=== PATIENT | male | born 1950 | race African-American/Black ===

== ENCOUNTER 2017-12-21 21:54 | Observation (INO) | payer OTHER ==
--- NOTE | 2017-12-21 21:58 | PDOC ---
Rapid Medical Evaluation Time Seen by Provider: 12/21/17 21:55 Medical Evaluation: 12/21/17 21:56 I have performed a brief in-person evaluation of this patient. The patient presents with a chief complaint of: syncope, LOC, hit back of head, hx of PEs - SOB + weakness X 1 month Pertinent physical exam findings: bp 91/50, no focal deficits but weak/drowsy appearing I have ordered the following: ekg, labs, head/cspine ct The patient will proceed to the ED for further evaluation. Discharge Disposition - Diagnosis Syncope - Referrals - Patient Instructions - Post Discharge Activity
[2017-12-21 22:05] VITALS: BMI 23.3
[2017-12-21] MEDS ORDERED: SODIUM CHLORIDE 500 ML IV STA (23:12)
[2017-12-21 23:15] LABS: EOS % 2.8 % (0-4.5); HEMATOCRIT 39.3 % (35.4-49); LYMPH % 38.7 % (8-40); MCHC 33.1 g/dl (32.0-35.9); MEAN CELL VOLUME 87.7 fl (80-96); MEAN PLT VOLUME 7.7 fl (7.5-11.1); MONO % 8.7 % (3.8-10.2); NEUT % 48.8 % (42.8-82.8); PLATELET COUNT 271 K/MM3 (134-434); RBC 4.49 M/mm3 (4.00-5.60); RDW 15.2 % (11.9-15.9); WHITE BLOOD COUNT 5.9 K/mm3 (4.0-10.0)
[2017-12-21 23:30] LABS: INR 0.96 (0.82-1.09); PROTHROMBIN TIME (PATIENT) 10.9 SEC (9.98-11.88)
--- NOTE | 2017-12-21 23:47 | PDOC ---
History of Present Illness - General Chief Complaint: Syncope/Near Syncope Stated Complaint: Syncope/Near Syncope Time Seen by Provider: 12/21/17 21:55 History Source: Patient Exam Limitations: No Limitations - History of Present Illness Initial Comments: 12/21/17 23:44 The patient is a 67M with a PMH of HTN, DM, rheumatoid arthritis, and PE in 2014 who presents to the ER after having a syncopal episode at home. The patient states that he was feeling well and stopped taking all of his medications including anticoagulation 2 weeks ago. The patient states that he felt like he had the urge to defecate, walked to the bathroom, and syncopized. He was unwitnessed. He states that when he woke up, he was not disoriented. He was at his friends house and his friends heard him hit the floor which prompted them to look for him. He states that he does not have any acute complaints but felt abdominal pain before he syncopized. He denies any CP, SOB, fever, chills, nausea, vomiting. Past History - Past Medical History Allergies/Adverse Reactions: Allergies Allergy/AdvReac Type Severity Reaction Status Date / Time No Known Allergies Allergy Verified 12/21/17 22:01 COPD: No DVT: Yes (PEs) Other medical history: RA, chronic lower back pain - Suicide/Smoking/Psychosocial Hx Smoking History: Never smoked Have you smoked in the past 12 months: No Information on smoking cessation initiated: No Hx Alcohol Use: No Drug/Substance Use Hx: Yes (Marijuana) Substance Use Type: None Review of Systems - Review of Systems Able to Perform ROS?: Yes Comments:: 12/22/17 00:30 GENERAL/CONSTITUTIONAL: No fever or chills. No weakness. HEAD, EYES, EARS, NOSE AND THROAT: No change in vision. No ear pain or discharge. No sore throat. CARDIOVASCULAR: No chest pain, palpitations, or lightheadedness. RESPIRATORY: Positive for shortness of breath prior to syncope. No cough, wheezing, or hemoptysis. GASTROINTESTINAL: Positive for abdominal pain prior to syncope. No nausea, vomiting, diarrhea, or constipation. GENITOURINARY: No dysuria, frequency, hematuria, or change in urination. MUSCULOSKELETAL: No joint or muscle swelling or pain. No neck or back pain. SKIN: No rash or lesions. NEUROLOGIC: Positive for syncope. No headache, numbness, tingling, weakness, or change in strength/sensation. ENDOCRINE: No increased thirst. No abnormal weight change. HEMATOLOGIC/LYMPHATIC: No anemia, easy bleeding, or history of blood clots. ALLERGIC/IMMUNOLOGIC: No hives or skin allergy. Is the patient limited Portuguese proficient: No *Physical Exam - Vital Signs Last Vital Signs Temp Pulse Resp BP Pulse Ox 97.4 F L 64 18 91/57 98 12/21/17 22:02 12/21/17 22:02 12/21/17 22:02 12/21/17 22:02 12/21/17 22:02 - Physical Exam Comments: 12/22/17 00:31 GENERAL: Well developed, well nourished. Awake and alert. No acute distress. HEENT: Normocephalic, atraumatic. Hearing grossly normal. Moist mucous membranes. PERRLA, EOMI. No conjunctival pallor. Sclera are non-icteric. Oropharynx is clear. NECK: Supple. Full ROM. No JVD. CARDIOVASCULAR: Regular rate and rhythm. No murmurs, rubs, or gallops. PULMONARY: No evidence of respiratory distress. Lungs clear to auscultation bilaterally. No wheezing, rales or rhonchi. ABDOMINAL: Soft. Non-tender. Non-distended. No rebound or guarding. GENITOURINARY: No CVA tenderness bilaterally. MUSCULOSKELETAL: Normal range of motion at all joints. No bony deformities or tenderness. EXTREMITIES: No cyanosis. No clubbing. No edema. No calf tenderness. SKIN: Warm and dry. Normal capillary refill. No rashes. No jaundice. NEUROLOGICAL: Alert, awake, appropriate. Cranial nerves 2-12 intact. No deficits to light touch and temperature in face, upper extremities and lower extremities. No motor deficits in the in face, upper extremities and lower extremities. Normoreflexic in the upper and lower extremities. Normal speech. PSYCHIATRIC: Cooperative. Good eye contact. Appropriate mood and affect. Heart Score/ECG Review #1 ECG reviewed & interpreted by me at: 23:46 General ECG Interpretation: Sinus Rhythm, Normal Rate, Normal Intervals, No acute ischemic changes Compared to previous ECG there are: Previous ECG unavail 12/22/17 00:32 NSR Rate 60 IL 170 QRS 84 QTc 446 No acute ischemic changes noted. ED Treatment Course - LABORATORY CBC & Chemistry Diagram: 12/21/17 23:00 12/21/17 23:00 - ADDITIONAL ORDERS Additional order review: Laboratory Results 12/21/17 12/21/17 23:10 23:00 PT with INR 10.90 INR 0.96 D-Dimer 585 H 12/21/17 23:00 RBC 4.49 MCV 87.7 MCHC 33.1 RDW 15.2 MPV 7.7 Neutrophils % 48.8 Lymphocytes % 38.7 Monocytes % 8.7 Eosinophils % 2.8 Basophils % 1.0 - RADIOLOGY Radiology Studies Ordered: Category Date Time Status ABDOMEN CT WITHOUT CONTRAST [CT] Stat CT Scan 12/21/17 23:44 Ordered CHEST CTA [CT] Stat CT Scan 12/21/17 23:18 Ordered Medical Decision Making - Medical Decision Making 12/22/17 00:33 The patient is a 67M with a PMH of HTN, DM, RA, and PE in 2014 who stopped taking his medications and experienced a syncopal episode. Bedside u/s does not reveal a AAA although the exam is very limited. PE is the most likely diagnosis although ACS and AAA are also on the differential. The patient had a negative head and neck CT. Pending labs and imaging of his chest and abdomen (CTA chest and noncon abd). Pt signed out to Dr. Trujillo, night team. *DC/Admit/Observation/Transfer Diagnosis at time of Disposition: Syncope - Referrals - Patient Instructions - Post Discharge Activity
[2017-12-21 23:49] LABS: ALBUMIN 3.3 g/dl (3.4-5.0); ANION GAP 11 (8-16); BILIRUBIN,TOTAL 0.2 mg/dL (0.2-1.0); BLOOD UREA NITROGEN 16 mg/dL (7-18); CALCIUM 9.1 mg/dL (8.5-10.1); CHLORIDE 105 mmol/L (98-107); CO2 26 mmol/L (21-32); CREATININE 1.2 mg/dL (0.7-1.3); GLUCOSE,RANDOM 107 mg/dL (74-106); SGPT/ALT 28 U/L (12-78); SODIUM 142 mmol/L (136-145); TOT PROT 7.4 g/dl (6.4-8.2)
[2017-12-21 23:52] LABS: ALK PHOS 105 U/L (45-117)
[2017-12-21 23:53] LABS: SGOT/AST 17 U/L (15-37)
[2017-12-21 23:54] LABS: POTASSIUM 4.9 mmol/L (3.5-5.1)
--- NOTE | 2017-12-22 00:28 | PDOC ---
Attending Attestation - HPI HPI: 12/22/17 01:12 The patient is a 67M with a PMHx of HTN, DM, rheumatoid arthritis, and PE (2014 ) who presents to the ER s/p syncope. The patient states that he syncopized on his way to use the restroom while at a friend's house. His friend did not witness the fall but heard when he hit the ground and called EMS. Patient states that he hasn't been taking his medications for the past 2 weeks because he is feeling well. Patient notes some abdominal pain before syncopal episode. He denies any CP, SOB, fever, chills, nausea, vomiting. <TomiAlyssa - Last Filed: 12/22/17 01:12> - Resident Resident Name: Rafita Dao - ED Attending Attestation I have performed the following: I have examined & evaluated the patient, The case was reviewed & discussed with the resident, I agree w/resident's findings & plan, Exceptions are as noted - Physicial Exam PE: 12/22/17 02:26 Patient is awake and alert, initially hypotensive at triage, in no respiratory distress; Normocephalic, atraumatic perrla, eomi, conj-pink supple, no bruits, no jvd cta rrr sft, nt, nd no extr edema, + bilateral hand deformity with ulnar deviation of the MCP joints bilaterally, also with bilateral foot deformities consistent with chronic rheumatoid arthritis A no 3, cranial nerves II through XII grossly intact; motor is 5 of 54; - Medical Decision Making 12/22/17 02:28 Patient 67-year-old male with history of rheumatoid arthritis, PE (noncompliant with his anticoagulation regimen), hypertension, diabetes presents to the ER after a syncopal episode with closed head injury earlier in the day. Initial evaluation, patient is noted to be hypotensive with oxygen saturation of 100% on room air, heart rate of 60-65, without focal neurological deficits, clear lungs, no evidence of murmurs rubs or gallops, bilateral hand and foot deformity consistent with chronic rheumatoid arthritis and a questionable pulsatile abdominal mass. CT of head and cervical spine reveals no evidence of intracranial pathology or cervical spine fracture dislocation. EKG reveals normal sinus rhythm with a rate of 60 without evidence of acute ischemia or right sided heart strain. CBC/CMP/cardiac profile within normal limit. Will obtain CT of chest to rule out PE, will obtain abdominal CT to rule out AAA. Will admit to telemetry further evaluation of syncope. We'll restart omar. <Azam Matute - Last Filed: 12/22/17 02:31>
[2017-12-22 01:55] LABS: URINE APPEARANCE CLEAR; URINE BILIRUBIN NEGATIVE (NEGATIVE); URINE BLOOD NEGATIVE (NEGATIVE); URINE COLOR STRAW; URINE GLUCOSE (UA) NEGATIVE (NEGATIVE); URINE KETONE NEGATIVE (NEGATIVE); URINE LEUK ESTERASE NEGATIVE (NEGATIVE); URINE NITRITE NEGATIVE (NEGATIVE); URINE PROTEIN NEGATIVE (NEGATIVE); URINE UROBILINOGEN NEGATIVE mg/dL (0.2-1.0)
[2017-12-22 02:17] LABS: METHADONE, UR NEGATIVE ng/ml (CUTOFF=300); OPIATES, URI NEGATIVE ng/ml (CUTOFF=300); PHENCYCLIDINE,URINE NEGATIVE ng/ml (CUTOFF=25); URINE AMPHETAMINES NEGATIVE ng/ml (CUTOFF=500); URINE BARBITURATES NEGATIVE ng/ml (CUTOFF=200); URINE BENZODIAZEPINES NEGATIVE ng/ml (CUTOFF=200)
--- NOTE | 2017-12-22 02:17 | PDOC ---
*Physical Exam - Vital Signs Last Vital Signs Temp Pulse Resp BP Pulse Ox 97.4 F L 64 18 91/57 98 12/21/17 22:02 12/21/17 22:02 12/21/17 22:02 12/21/17 22:02 12/21/17 22:02 - Physical Exam Comments: 12/22/17 04:01 General Appearance: Nourished. No Apparent Distress HEENT: No Pharyngeal Erythema, Tonsillar Exudate, Tonsillar Erythema Neck: No Cervical Lymphadenopathy Respiratory/Chest: Lungs Clear, Normal Breath Sounds. No Crackles, Rales, Rhonchi, Wheezing Cardiovascular: Regular Rhythm, Regular Rate. No JVD, Murmur, Gallops, Rubs Gastrointestinal/Abdominal: Normal Bowel Sounds, Soft. No Guarding, Rebound, Tenderness Musculoskeletal: No CVA Tenderness Extremity: Normal Capillary Refill Integumentary: Normal Color, Dry, Warm Neurologic: Fully Oriented, Alert, Normal Mood/Affect, Normal Response, ED Treatment Course - LABORATORY CBC & Chemistry Diagram: 12/21/17 23:00 12/21/17 23:00 - ADDITIONAL ORDERS Additional order review: Laboratory Results 12/22/17 12/21/17 12/21/17 01:43 23:10 23:00 PT with INR INR D-Dimer 585 H Sodium Potassium Chloride Carbon Dioxide Anion Gap BUN Creatinine Creat Clearance w eGFR Random Glucose Calcium Total Bilirubin AST ALT Alkaline Phosphatase Creatine Kinase Creatine Kinase Index CK-MB (CK-2) Troponin I Total Protein Albumin Urine Color Straw Urine Appearance Clear Urine pH 6.0 Ur Specific [place] 1.011 Urine Protein Negative Urine Glucose (UA) Negative Urine Ketones Negative Urine Blood Negative Urine Nitrite Negative Urine Bilirubin Negative Urine Urobilinogen Negative Ur Leukocyte Esterase Negative Blood Type Cancelled Antibody Screen Cancelled 12/21/17 12/21/17 23:00 23:00 PT with INR 10.90 INR 0.96 D-Dimer Sodium 142 Potassium 4.9 Chloride 105 Carbon Dioxide 26 Anion Gap 11 BUN 16 Creatinine 1.2 Creat Clearance w eGFR > 60 Random Glucose 107 H Calcium 9.1 Total Bilirubin 0.2 AST 17 ALT 28 Alkaline Phosphatase 105 Creatine Kinase 239 Creatine Kinase Index 0.8 CK-MB (CK-2) 1.979 Troponin I < 0.02 Total Protein 7.4 Albumin 3.3 L Urine Color Urine Appearance Urine pH Ur Specific [place] Urine Protein Urine Glucose (UA) Urine Ketones Urine Blood Urine Nitrite Urine Bilirubin Urine Urobilinogen Ur Leukocyte Esterase Blood Type Antibody Screen 12/21/17 23:00 RBC 4.49 MCV 87.7 MCHC 33.1 RDW 15.2 MPV 7.7 Neutrophils % 48.8 Lymphocytes % 38.7 Monocytes % 8.7 Eosinophils % 2.8 Basophils % 1.0 - Medications Given in the ED: ED Medications Discontinued Medications Generic Name Dose Route Start Last Admin Trade Name Jojo PRN Reason Stop Dose Admin Sodium Chloride 500 mls @ 500 mls/hr 12/21/17 23:12 12/21/17 23:14 Normal Saline - IV 12/22/17 00:11 500 mls/hr ASDIR STA Administration Progress Note - Progress Note Progress Note: The patient is a 67M with a PMH of HTN, DM, rheumatoid arthritis, and PE in 2014 who presents to the ER after having a syncopal episode at home. The patient is pending a CTA of the chest to r/o PE. Likely admission for syncope. Medical Decision Making - Medical Decision Making 12/22/17 04:02 CTA of the chest is negative for PE as preliminarily read by the fabrication department supervisor radiologist. We will start the patient on his home eloquis here in the ED. We discussed the case with the hospitalist team who accepted the patient for admission. *DC/Admit/Observation/Transfer Diagnosis at time of Disposition: Syncope Qualifiers: Encounter type: initial encounter - Discharge Dispostion Condition at time of disposition: Stable Admit: Yes - Referrals Referrals: Stephani Short [Primary Care Provider] - - Patient Instructions - Post Discharge Activity
[2017-12-22 02:18] LABS: COCAINE, UR POSITIVE ng/ml (CUTOFF=300)
[2017-12-22] MEDS ORDERED: SODIUM CHLORIDE 500 ML IV STA (02:26)
[2017-12-22] MEDS ORDERED: SODIUM CHLORIDE 1,000 ML IV SCH (05:00)
--- NOTE | 2017-12-22 05:39 | PN ---
Teaching Attending Note Name of Resident: Christina Guerrero ATTENDING PHYSICIAN STATEMENT I saw and evaluated the patient. I reviewed the resident's note and discussed the case with the resident. I agree with the resident's findings and plan as documented. SUBJECTIVE: OBJECTIVE: ASSESSMENT AND PLAN: this is a 67 y/o male patient with a history of DVT with PE s/p embolectomy presented to the hospital for syncopal episode - according to the patient he initially was having severe abdominal pain when he went and layed down for about 20 min, the patient then had to go to the bathroom since he felt like he is about to vomit, when the episode happened DDx syncopal -orthostatic changes - patient was noted to be hypotensive in the ER - vaso-vagal 2/2 pain - cramping pain - drug/alcohol intoxication - patient stated he was smoking marijuana today - Pulmonary embolism - unlikely due to the history of how the patient presented - never had SOB, no dyspnea plan: - IVF hydration - orhtostatic - pain management - avoid sedative - cosider CT angiogram with PE protocol
--- NOTE | 2017-12-22 05:50 | HP ---
CHIEF COMPLAINT: syncope PCP: Laura Short HISTORY OF PRESENT ILLNESS: 67M with PMH of DM, MA 2 yrs ago, PE in 2015, chronic back pain, rheumatoid arthritis, presents s/p syncopal episode. Pt reports rising from laying down for at least 20 minutes, to go to the bathroom after an urge to defecate. Pt reports struggling with his belt buckle in the bathroom, feeling lightheaded like he was going to pass out, and then having a syncopal episode. Pt endorses +LOC and +hitting head. Head CT and Cervical Spine CT are (-) for acute pathology. Pt endorses abdominal pain and sob just prior to syncope. Pt stopped taking his medications, including an anticoagulant Eliquis, 2 weeks ago. Regarding hx of PE, pt reports spending 15 mo in senior care including in 2015, being in the hospital senior care for back pain/bulging disk -> developing PE resulting in open chest surgery. Pt denies chest pain, palpitations, sob, fever , chills, nausea, vomiting. ER course was notable for: (1) Urine toxicology (+) for cocaine and marijuana (2) d-dimer (+) 585, Chest/Thorax CTA (-) for PE (3) Ab/Pel CT -> (-) for AAA on prelim read PAST MEDICAL HISTORY: DM MA 2 yrs ago PE in 2015 chronic back pain rheumatoid arthritis PAST SURGICAL HISTORY: umbilical hernia repair embolectomy for PE in 2014 Social History: Smokin.5 ppd x 25 yrs, quit 20 yrs ago Alcohol: 1/2 pint vodka every other day x 1 yr Drugs: crack cocaine, marijuana Family History: mom - DM Allergies No Known Allergies Allergy (Verified 12/21/17 22:01) HOME MEDICATIONS: REVIEW OF SYSTEMS CONSTITUTIONAL: Absent: fever, chills, diaphoresis, generalized weakness HEENT: Absent: rhinorrhea, nasal congestion, throat pain, ear pain, eye pain, visual changes CARDIOVASCULAR: syncope Absent: chest pain, palpitations, irregular heart rate, lightheadedness, peripheral edema RESPIRATORY: sob prior to syncope Absent: cough, wheezing, stridor, hemoptysis GASTROINTESTINAL: abdominal pain prior to syncope Absent: abdominal distension, nausea, vomiting, diarrhea, constipation GENITOURINARY: Absent: dysuria, frequency, hematuria MUSCULOSKELETAL: Absent: myalgia, arthralgia, joint swelling, back pain, neck pain SKIN: Absent: rash, itching, pallor HEMATOLOGIC/IMMUNOLOGIC: Absent: easy bleeding, easy bruising NEUROLOGIC: Absent: headache, focal weakness or paresthesias PHYSICAL EXAMINATION Vital Signs - 24 hr 12/21/17 12/22/17 12/22/17 22:02 00:00 04:43 Temperature 97.4 F L 98.0 F Pulse Rate 64 64 Pulse Rate [ 64 64 Apical] Respiratory 18 12 14 Rate Blood Pressure 91/57 101/67 Blood Pressure 101/67 98/60 [Right Arm] O2 Sat by Pulse 98 100 100 Oximetry (%) 12/22/17 04:58 Temperature Pulse Rate Pulse Rate [ Apical] Respiratory Rate Blood Pressure Blood Pressure 100/65 [Right Arm] O2 Sat by Pulse Oximetry (%) GENERAL: Awake, alert, and fully oriented, in no acute distress. HEAD: Normal with no signs of trauma. EYES: Pupils equal, round and reactive to light, extraocular movements intact, sclera anicteric, conjunctiva clear. No lid lag. EARS, NOSE, THROAT: Oropharynx clear, moist mucous membranes. NECK: Normal range of motion, supple without JVD. LUNGS: Breath sounds equal, clear to auscultation bilaterally. No wheezes, and no crackles. No accessory muscle use. HEART: Regular rate and rhythm, normal S1 and S2 without murmur, rub or gallop. ABDOMEN: Soft, +tender to RUQ, not distended, normoactive bowel sounds, no guarding. MUSCULOSKELETAL: multiple rheumatic joints to anibal hands and feet noted. No crepitus or tenderness to palpation. LOWER EXTREMITIES: 2+ pulses, warm, well-perfused. No calf tenderness. No peripheral edema. NEUROLOGICAL: Cranial nerves II-XII grossly intact. Normal speech. Muscle strength 5/5 x 4 extremities. Sensation intact and symmetric throughout. No facial droop. PSYCHIATRIC: Cooperative. Good eye contact. Appropriate mood and affect. SKIN: Warm, dry, normal turgor, no rashes or lesions noted. Laboratory Results - last 24 hr 12/21/17 12/21/17 12/21/17 23:00 23:00 23:00 WBC 5.9 RBC 4.49 Hgb 13.0 Hct 39.3 MCV 87.7 MCH 29.0 MCHC 33.1 RDW 15.2 Plt Count 271 MPV 7.7 Neutrophils % 48.8 Lymphocytes % 38.7 Monocytes % 8.7 Eosinophils % 2.8 Basophils % 1.0 PT with INR 10.90 INR 0.96 D-Dimer Sodium 142 Potassium 4.9 Chloride 105 Carbon Dioxide 26 Anion Gap 11 BUN 16 Creatinine 1.2 Creat Clearance w eGFR > 60 Random Glucose 107 H Calcium 9.1 Total Bilirubin 0.2 AST 17 ALT 28 Alkaline Phosphatase 105 Creatine Kinase 239 Creatine Kinase Index 0.8 CK-MB (CK-2) 1.979 Troponin I < 0.02 Total Protein 7.4 Albumin 3.3 L Urine Color Urine Appearance Urine pH Ur Specific [place] Urine Protein Urine Glucose (UA) Urine Ketones Urine Blood Urine Nitrite Urine Bilirubin Urine Urobilinogen Ur Leukocyte Esterase Opiates Screen Methadone Screen Barbiturate Screen Phencyclidine Screen Ur Amphetamines Screen MDMA (Ecstasy) Screen Benzodiazepines Screen Cocaine Screen U Marijuana (THC) Screen Blood Type Antibody Screen 12/21/17 12/21/17 12/22/17 23:00 23:10 01:43 WBC RBC Hgb Hct MCV MCH MCHC RDW Plt Count MPV Neutrophils % Lymphocytes % Monocytes % Eosinophils % Basophils % PT with INR INR D-Dimer 585 H Sodium Potassium Chloride Carbon Dioxide Anion Gap BUN Creatinine Creat Clearance w eGFR Random Glucose Calcium Total Bilirubin AST ALT Alkaline Phosphatase Creatine Kinase Creatine Kinase Index CK-MB (CK-2) Troponin I Total Protein Albumin Urine Color Straw Urine Appearance Clear Urine pH 6.0 Ur Specific [place] 1.011 Urine Protein Negative Urine Glucose (UA) Negative Urine Ketones Negative Urine Blood Negative Urine Nitrite Negative Urine Bilirubin Negative Urine Urobilinogen Negative Ur Leukocyte Esterase Negative Opiates Screen Methadone Screen Barbiturate Screen Phencyclidine Screen Ur Amphetamines Screen MDMA (Ecstasy) Screen Benzodiazepines Screen Cocaine Screen U Marijuana (THC) Screen Blood Type Cancelled Antibody Screen Cancelled 12/22/17 01:43 WBC RBC Hgb Hct MCV MCH MCHC RDW Plt Count MPV Neutrophils % Lymphocytes % Monocytes % Eosinophils % Basophils % PT with INR INR D-Dimer Sodium Potassium Chloride Carbon Dioxide Anion Gap BUN Creatinine Creat Clearance w eGFR Random Glucose Calcium Total Bilirubin AST ALT Alkaline Phosphatase Creatine Kinase Creatine Kinase Index CK-MB (CK-2) Troponin I Total Protein Albumin Urine Color Urine Appearance Urine pH Ur Specific [place] Urine Protein Urine Glucose (UA) Urine Ketones Urine Blood Urine Nitrite Urine Bilirubin Urine Urobilinogen Ur Leukocyte Esterase Opiates Screen Negative Methadone Screen Negative Barbiturate Screen Negative Phencyclidine Screen Negative Ur Amphetamines Screen Negative MDMA (Ecstasy) Screen Negative Benzodiazepines Screen Negative Cocaine Screen Positive U Marijuana (THC) Screen Positive Blood Type Antibody Screen 12/21/17 EKG - NSR 60, QTc 446, no acute ischemic changes ASSESSMENT/PLAN: 67M with PMH of DM, MA 2 yrs ago, PE in 2014, chronic back pain, rheumatoid arthritis, presents s/p syncopal episode. # syncope - likely 2/2 dehydration vs vaso-vagal (related to abdominal cramping pain) - f/u orthostatic VS - Head CT and Cervical Spine CT (-) - IVFs # hx of PE - f/u official read for Chest/Thorax CTA - resume home med of Eliquis - reconcile home medications, pt's pharmacy: [facility] [address] in [place] # RUQ tenderness - f/u official read for Ab/Pel CT # DM - BGMs - Novolog SSI # polysubstance abuse - monitor for s/s of withdrawal # FEN - Fluids: NS @ 100 ml/hr - Electrolytes: wnl, continue to monitor - Nutrition: diabetic, low sodium diet # Prophylaxis - DVT ppx with Eliquis Visit type - Emergency Visit Emergency Visit: Yes ED Registration Date: 12/22/17 Care time: The patient presented to the Emergency Department on the above date and was hospitalized for further evaluation of their emergent condition. - New Patient This patient is new to me today: Yes Date on this admission: 12/22/17 - Critical Care Critical Care patient: No Hospitalist Screening - Colonoscopy Questionnaire Colonoscopy Questionnaire: Colonoscopy Questionnaire - Patient: 50 - 75 years old and never had a screening colonoscopy: Yes History of colon or rectal polyps, or CA: Unknown History of IBD, Crohn's disease or UC: Unknown History of abdominal radiation therapy as a child: Unknown - Relative: 1 with colon or rectal CA, or polyps at age 60 or younger: Unknown Colon or rectal CA diagnosed at age 45 or younger: Unknown Multiple relatives with colon or rectal CA: Unknown - Outcome: Screening Result: Positive Screen
[2017-12-22] MEDS: INSULIN SLIDING SCALE (NOVOLOG) 1 VIAL SQ SCH ×2 (07:52→12:30)
[2017-12-22 07:53] LABS: HEMOGLOBIN 12.1 GM/dL (11.7-16.9); MCH 28.6 pg (25.7-33.7); MCHC 32.8 g/dl (32.0-35.9); MEAN CELL VOLUME 87.1 fl (80-96); MEAN PLT VOLUME 7.6 fl (7.5-11.1); PLATELET COUNT 262 K/MM3 (134-434); RBC 4.24 M/mm3 (4.00-5.60); RDW 14.9 % (11.9-15.9); WHITE BLOOD COUNT 6.3 K/mm3 (4.0-10.0)
[2017-12-22 08:19] LABS: ANION GAP 11 (8-16); BLOOD UREA NITROGEN 14 mg/dL (7-18); CALCIUM 8.9 mg/dL (8.5-10.1); CHLORIDE 109 mmol/L (98-107); CHOLESTEROL 156 mg/dL (50-200); CO2 25 mmol/L (21-32); CREATININE 1.1 mg/dL (0.7-1.3); GLUCOSE,RANDOM 116 mg/dL (74-106); MAGNESIUM 2.4 mg/dL (1.8-2.4); PHOSPHOROUS 3.9 mg/dL (2.5-4.9); POTASSIUM 3.9 mmol/L (3.5-5.1); SODIUM 145 mmol/L (136-145)
[2017-12-22] MEDS ORDERED: APIXABAN 5 MG TABLET PO SCH (10:00)
[2017-12-22] MEDS ORDERED: APIXABAN 2.5 MG TABLET PO SCH (10:00)
[2017-12-22] MEDS ORDERED: HEPARIN NA (PORCINE) 5,000 UNITS/ML 1ML VIAL SQ SCH (10:00)
[2017-12-22 13:55] VITALS: BP 94/56; PULSE 64; TEMP 98.2
[2017-12-22] MEDS ORDERED: oxyCODONE HCL 5 MG TABLET PO ONE ×2 (14:03→14:09)
--- NOTE | 2017-12-22 14:18 | DS ---
Physical Exam: SUBJECTIVE: Patient seen and examined OBJECTIVE: Vital Signs Period Temp Pulse Resp BP Sys/Benavides Pulse Ox Last 24 Hr 97.4 F-98.7 F 61-70 12-20 91-106/54-67 98-100 PHYSICAL EXAM GENERAL: The patient is awake, alert, and fully oriented, in no acute distress. HEAD: Normal with no signs of trauma. EYES: PERRL, extraocular movements intact, sclera anicteric, conjunctiva clear. ENT: Ears normal, nares patent, oropharynx clear without exudates, moist mucous membranes. NECK: Trachea midline, full range of motion, supple. LUNGS: Breath sounds equal, clear to auscultation bilaterally, no wheezes, no crackles, no accessory muscle use. HEART: Regular rate and rhythm, S1, S2 without murmur, rub or gallop. ABDOMEN: Soft, nontender, nondistended, normoactive bowel sounds, no guarding, no rebound, no hepatosplenomegaly, no masses. EXTREMITIES: 2+ pulses, warm, well-perfused, no edema. NEUROLOGICAL: Cranial nerves II through XII grossly intact. Normal speech, gait not observed. PSYCH: Normal mood, normal affect. SKIN: Warm, dry, normal turgor, no rashes or lesions noted. LABS Laboratory Results - last 24 hr 12/21/17 12/21/17 12/21/17 23:00 23:00 23:00 WBC 5.9 RBC 4.49 Hgb 13.0 Hct 39.3 MCV 87.7 MCH 29.0 MCHC 33.1 RDW 15.2 Plt Count 271 MPV 7.7 Neutrophils % 48.8 Lymphocytes % 38.7 Monocytes % 8.7 Eosinophils % 2.8 Basophils % 1.0 PT with INR 10.90 INR 0.96 D-Dimer Sodium 142 Potassium 4.9 Chloride 105 Carbon Dioxide 26 Anion Gap 11 BUN 16 Creatinine 1.2 Creat Clearance w eGFR > 60 POC Glucometer Random Glucose 107 H Calcium 9.1 Phosphorus Magnesium Total Bilirubin 0.2 AST 17 ALT 28 Alkaline Phosphatase 105 Creatine Kinase 239 Creatine Kinase Index 0.8 CK-MB (CK-2) 1.979 Troponin I < 0.02 Total Protein 7.4 Albumin 3.3 L Cholesterol Urine Color Urine Appearance Urine pH Ur Specific [place] Urine Protein Urine Glucose (UA) Urine Ketones Urine Blood Urine Nitrite Urine Bilirubin Urine Urobilinogen Ur Leukocyte Esterase Opiates Screen Methadone Screen Barbiturate Screen Phencyclidine Screen Ur Amphetamines Screen MDMA (Ecstasy) Screen Benzodiazepines Screen Cocaine Screen U Marijuana (THC) Screen Blood Type Antibody Screen 12/21/17 12/21/17 12/21/17 23:00 23:02 23:10 WBC RBC Hgb Hct MCV MCH MCHC RDW Plt Count MPV Neutrophils % Lymphocytes % Monocytes % Eosinophils % Basophils % PT with INR INR D-Dimer 585 H Sodium Potassium Chloride Carbon Dioxide Anion Gap BUN Creatinine Creat Clearance w eGFR POC Glucometer [phone] Random Glucose Calcium Phosphorus Magnesium Total Bilirubin AST ALT Alkaline Phosphatase Creatine Kinase Creatine Kinase Index CK-MB (CK-2) Troponin I Total Protein Albumin Cholesterol Urine Color Urine Appearance Urine pH Ur Specific [place] Urine Protein Urine Glucose (UA) Urine Ketones Urine Blood Urine Nitrite Urine Bilirubin Urine Urobilinogen Ur Leukocyte Esterase Opiates Screen Methadone Screen Barbiturate Screen Phencyclidine Screen Ur Amphetamines Screen MDMA (Ecstasy) Screen Benzodiazepines Screen Cocaine Screen U Marijuana (THC) Screen Blood Type Cancelled Antibody Screen Cancelled 12/22/17 12/22/17 12/22/17 01:43 01:43 07:25 WBC 6.3 RBC 4.24 Hgb 12.1 Hct 37.0 MCV 87.1 MCH 28.6 MCHC 32.8 RDW 14.9 Plt Count 262 MPV 7.6 Neutrophils % Lymphocytes % Monocytes % Eosinophils % Basophils % PT with INR INR D-Dimer Sodium Potassium Chloride Carbon Dioxide Anion Gap BUN Creatinine Creat Clearance w eGFR POC Glucometer Random Glucose Calcium Phosphorus Magnesium Total Bilirubin AST ALT Alkaline Phosphatase Creatine Kinase Creatine Kinase Index CK-MB (CK-2) Troponin I Total Protein Albumin Cholesterol Urine Color Straw Urine Appearance Clear Urine pH 6.0 Ur Specific [place] 1.011 Urine Protein Negative Urine Glucose (UA) Negative Urine Ketones Negative Urine Blood Negative Urine Nitrite Negative Urine Bilirubin Negative Urine Urobilinogen Negative Ur Leukocyte Esterase Negative Opiates Screen Negative Methadone Screen Negative Barbiturate Screen Negative Phencyclidine Screen Negative Ur Amphetamines Screen Negative MDMA (Ecstasy) Screen Negative Benzodiazepines Screen Negative Cocaine Screen Positive U Marijuana (THC) Screen Positive Blood Type Antibody Screen 12/22/17 12/22/17 12/22/17 07:25 07:51 11:11 WBC RBC Hgb Hct MCV MCH MCHC RDW Plt Count MPV Neutrophils % Lymphocytes % Monocytes % Eosinophils % Basophils % PT with INR INR D-Dimer Sodium 145 Potassium 3.9 D Chloride 109 H Carbon Dioxide 25 Anion Gap 11 BUN 14 Creatinine 1.1 Creat Clearance w eGFR POC Glucometer 118 84 Random Glucose 116 H Calcium 8.9 Phosphorus 3.9 Magnesium 2.4 Total Bilirubin AST ALT Alkaline Phosphatase Creatine Kinase Creatine Kinase Index CK-MB (CK-2) Troponin I Total Protein Albumin Cholesterol 156 Urine Color Urine Appearance Urine pH Ur Specific [place] Urine Protein Urine Glucose (UA) Urine Ketones Urine Blood Urine Nitrite Urine Bilirubin Urine Urobilinogen Ur Leukocyte Esterase Opiates Screen Methadone Screen Barbiturate Screen Phencyclidine Screen Ur Amphetamines Screen MDMA (Ecstasy) Screen Benzodiazepines Screen Cocaine Screen U Marijuana (THC) Screen Blood Type Antibody Screen HOSPITAL COURSE: Date of Admission:12/22/17 Date of Discharge: 12/22/17 Discharge Summary Reason For Visit: SYNCOPE Current Active Problems Syncope (Acute) Condition: Stable - Instructions Diet, Activity, Other Instructions: Please return to the ED for any new, persistent, or worsening symptoms. Followup with your PCP in 1 week Take home medication as directed on discharge list See your pain management doctor and pcp on Sunday Referrals: Stephani Short [Primary Care Provider] - Disposition: HOME - Home Medications Comprehensive Discharge Medication List: Ambulatory Orders Apixaban [Eliquis -] 5 mg PO BID #60 tablet 12/22/17 Oxycodone HCl 30 mg PO Q6H #5 tablet MDD 4 12/22/17
--- NOTE | 2017-12-25 11:38 | EKG ---
Test Reason : Blood Pressure : / mmHG Vent. Rate : 060 BPM Atrial Rate : 060 BPM P-R Int : 170 ms QRS Dur : 084 ms QT Int : 446 ms P-R-T Axes : 082 055 051 degrees QTc Int : 446 ms NORMAL SINUS RHYTHM NORMAL ECG NO PREVIOUS ECGS AVAILABLE Confirmed by MD Julio, Danial ([id number]) on 12/25/2017 11:38:15 AM Referred By: Confirmed By:Danial Kim MD
== END 2017-12-22 16:06 | disposition home or self-care (01) ==
LOC: JER 21:54 → INTOOBSV 12-22 04:04 → JERBED 12-22 04:04 → UNDOADMIN 12-22 04:07 → JERBED 12-22 04:07 → J4W 12-22 06:53
PROVIDERS: ADMIT Internal Medicine; ATTEND Nurse Practitioner Acute Care
PROC: 3E0337Z Introduction of Electrolytic and Water Balance Substance into Peripheral Vein, Percutaneous Approach (ICD-10-PCS; principal; 2017-12-22)
DX: R55 Syncope and collapse (principal); I10 Essential (primary) hypertension; E11.9 Type 2 diabetes mellitus without complications; I25.2 Old myocardial infarction; M06.9 Rheumatoid arthritis, unspecified; Z86.711 Personal history of pulmonary embolism; Z91.14 Patient's other noncompliance with medication regimen; Z79.01 Long term (current) use of anticoagulants; M54.5 Low back pain; G89.29 Other chronic pain
CPT/HCPCS: 36415; 70450-TC; 71275-TC; 72125-TC; 74177-TC; 80048; 80053; 80307; 81003; 82465; 82550; 82553; 82962; 83735; 84100; 84484; 85025; 85027; 85379; 85610; 93005; 93010; 96360; 96361; 99285-25; G0378